=== PATIENT | female | born 1945 | race Caucasian/White ===

== ENCOUNTER → 2018-01-06 | Outpatient (CLI) | payer MEDICARE ==
--- NOTE | 2018-01-06 18:46 | ECHOF ---
Referral Reason:R07.9 Chest pain MEASUREMENTS -------- HEIGHT: 165.1 cm WEIGHT: 68.9 kg BP: IVSd: 1.2 cm (0.6 - 1.1) LVIDd: 3.8 cm (3.9 - 5.3) LVPWd: 1.2 cm (0.6 - 1.1) IVSs: 1.5 cm LVIDs: 2.9 cm LVPWs: 1.3 cm LA Diam: 2.8 cm (2.7 - 3.8) Ao Diam: 3.4 cm (2.0 - 3.7) AV Cusp: 1.5 cm (1.5 - 2.6) LA Diam: 3.4 cm (2.7 - 3.8) MV EXCURSION: 12.148 mm (> 18.000) MV EF SLOPE: 35 mm/s (70 - 150) EPSS: 1.0 cm MV E Anthony: 0.36 m/s MV DecT: 235 ms MV A Anthony: 0.78 m/s MV E/A Ratio: 0.46 RAP: 5.00 mmHg RVSP: 12.04 mmHg FINDINGS -------- Sinus rhythm. This was a technically adequate study. The left ventricular size is normal. There is mild concentric left ventricular hypertrophy. Overa ll left ventricular systolic function is low-normal with, an EF between 50 - 55 %. The right ventricle is normal in size. The left atrial size is normal. The right atrial size is normal. There is mild aortic valve sclerosis. Trace amount of aortic regurgitation. Mild mitral annular calcification present. Mild mitral regurgitation is present. Mild tricuspid regurgitation present. There is no evidence of pulmonary hypertension. The right v entricular systolic pressure, as measured by Doppler, is 12.04mmHg. There is no pulmonic regurgitation present. The aortic root size is normal. There is no pericardial effusion. CONCLUSIONS -------- 1. The left ventricular size is normal. 2. There is mild concentric left ventricular hypertrophy. 3. The right ventricle is normal in size. 4. The left atrial size is normal. 5. The right atrial size is normal. 6. There is mild aortic valve sclerosis. 7. Trace amount of aortic regurgitation. 8. Mild mitral annular calcification present. 9. Mild mitral regurgitation is present. 10. Mild tricuspid regurgitation present. 11. There is no evidence of pulmonary hypertension. 12. The right ventricular systolic pressure, as measured by Doppler, is 12.04mmHg. 13. There is no pulmonic regurgitation present. 14. The aortic root size is normal. 15. There is no pericardial effusion. [employer]: Yennifer Serrano RDCS
--- NOTE | 2018-01-06 20:50 | EST ---
EXERCISE STRESS DATE OF SERVICE: 01/06/2018 AGE: 72 SEX: Fe HT: 65" WT: 152 PROTOCOL: Jasmeet STAGE: 1 DURATION OF EXERCISE: 3:05 minutes HEART RATE REST: 80 BLOOD PRESSURE REST: 134/87 MAXIMUM HEART RATE ACHIEVED: 133 MAXIMUM BLOOD PRESSURE: 192/100 85% MPHR: 127 100% MPHR: 149 METS: 4.6 INDICATIONS: Chest pain. CONCLUSION: Baseline EKG revealed a sinus mechanism with a right bundle branch block pattern and repolarization abnormality. Patient walked on standard Jasmeet protocol for only 3 minutes and achieved a maximal heart rate of 133 beats per minute which is more than 85% of predicted maximal. Her resting blood pressure was 134/80. Peak blood pressure was 189/95. She had right sided ventricular ectopy in the recovery period. However, EKG did not reveal any ST-segment changes to indicate ischemia. Because of resting EKG, this is considered an inconclusive stress test. IMPRESSION: 1. Limited exercise capacity. 2. Because of underlying bundle branch block this is considered as an inconclusive stress test but patient did not have any subjective symptoms of angina. Her exercise capacity was quite limited. MMODL / IJN: [id number] /
== END | disposition home or self-care (01) ==
LOC: RADNMMAIN 08:49
PROVIDERS: ATTEND Family Medicine
DX: I08.1 Rheumatic disorders of both mitral and tricuspid valves (principal); I45.4 Nonspecific intraventricular block
CPT/HCPCS: 93017; 93306

== ENCOUNTER → 2018-04-25 | Outpatient (CLI) | payer MEDICARE ==
--- NOTE | 2018-04-26 14:24 | MM ---
Reason for exam: screening (asymptomatic). Last mammogram was performed 2 years ago. History: Patient is postmenopausal. Physical Findings: A clinical breast exam by your physician is recommended on an annual basis and results should be correlated with mammographic findings. MG Screening Mammo w CAD Bilateral CC and MLO view(s) were taken. Prior study comparison: April 28, 2016, mammogram, performed at [facility]. December 06, 2012, mammogram, performed at [facility]. The breast tissue is heterogeneously dense. This may lower the sensitivity of mammography. There is chronic nodularity in the right breast. There is no discrete abnormality. ASSESSMENT: Benign, BI-RAD 2 RECOMMENDATION: Routine screening mammogram of both breasts in 1 year.
== END | disposition home or self-care (01) ==
LOC: RADMAMWWP 08:53
PROVIDERS: ATTEND Family Medicine
DX: Z12.31 Encounter for screening mammogram for malignant neoplasm of breast (principal)
CPT/HCPCS: 77067